=== PATIENT | male | born 1975 | race Hispanic/Latino ===

== ENCOUNTER 2023-05-01 09:56 | Emergency (ER) | payer MEDICAID ==
[~2023-05-01] VITALS: Ht 177.8 cm; Wt 106.6 kg
[2023-05-01] MEDS ORDERED: TETANUS/DIPHTHERIA TOXOID [ADULT] 0.5 ML VIAL IM ONE (11:30)
[2023-05-01 12:01] VITALS: BP 124/68; PULSE 68; RESP 16; O2SAT 98
== END 2023-05-01 11:55 | disposition home or self-care (01) ==
LOC: EDH 09:56
DX: S60.352A Superficial foreign body of left thumb, initial encounter (principal); X58.XXXA Exposure to other specified factors, initial encounter; Y93.89 Activity, other specified; Y92.89 Other specified places as the place of occurrence of the external cause; Y99.8 Other external cause status
CPT/HCPCS: 73140; 90471; 90714